=== PATIENT | female | born 1960 | race Caucasian/White ===

== ENCOUNTER 2016-08-22 13:37 | Emergency (ER) | payer BC ==
--- NOTE | 2016-08-22 14:38 | ER NURSING DOCUMENTATION ---
Nurse's Notes [facility] ([place], [place]) Name:Vanna Bowles Age:56 yrs Sex:Female :1960 Arrival Date:08/22/2016 Time:13:37 Bed1 Private MD: Diagnosis:Acute Neck Pain Presentation: 08/22 13:53 Presenting complaint: Patient states: lifted something very heavy on 08/19 and been sj having pain in right clavicular area ever since, unrelieved by massage, chiropractic manipulation, and tylenol. Transition of care: Home. 13:53 Acuity: KAMINI 3 sj 13:53 Method Of Arrival: Private Vehicle sj Triage Assessment: 13:56 General: Appears comfortable, Behavior is cooperative, pleasant. Pain: Complains of sj pain in right clavicle Pain radiates to right scapular area Pain currently is 5 out of 10 on a pain scale. Neuro: Level of Consciousness is awake, alert, Oriented to person, place, time, event. Cardiovascular: Capillary refill < 3 seconds. Respiratory: Respiratory effort is even, unlabored, Respiratory pattern is regular, symmetrical. Historical: - Allergies: Codeine; Demerol; - Home Meds: 1. Acetaminophen Oral - PMHx: vertigo; ASTHMA; hard of hearing; - PSHx: Cholecysectomy; laser to inner ear; bilateral knees; HYSTERECTOMY; clavicle repair 04/29; - Tetanus: < 10 years. - Ebola Screening: : Patient negative for fever greater than or equal to 101.5 degrees Fahrenheit, and additional compatible Ebola Virus Disease symptoms. Patient denies exposure to infectious person. Patient denies travel to an Ebola-affected area in the 21 days before illness onset. No symptoms or risks identified at this time. . - Immunization history: Pneumococcal vaccine is up to date, Flu Vaccine None. - Social history: Smoking status: Patient states was never smoker of tobacco. Patient uses alcohol only on a social basis. Patient/guardian denies using marijuana. Screenin:00 Infectious Disease Risk None. Abuse screen: Denies threats or abuse. Denies injuries sj from another. 14:00 Nutritional screening: No deficits noted. sj Assessment: 13:58 See Triage Assessment done by same RN. sj Vital Signs: 13:43 BP 121 / 66; Pulse 77; Resp 16; Temp 98.2(O); Pulse Ox 91% on R/A; Weight 70.76 kg (R); arc Height 5 ft. 7 in. (170.18 cm) (R); Pain 4/10; 13:43 Body Mass Index 24.43 (70.76 kg, 170.18 cm) arc ED Course: 13:38 Patient arrived in ED. em3 13:48 Rayray Cazares MD is Attending Physician. be 13:53 Isabel Sanford is Primary Nurse. sj 13:53 Ice pack to injury. arc 13:54 Triage completed. sj 13:58 Notified ED Physician of patient's arrival and chief complaint. Dr. Cazares. sj 14:00 Faheem Marie MD, Manuel Grimes DO is Referral Physician. be 14:00 Patient moved to radiology. pm1 14:01 Valuables Given to family. Patient has correct armband on for positive identification. sj Placed in gown. Bed in low position. Call light in reach. Side rails up X 1. 14:19 Patient moved back from radiology. pm1 14:36 Ice pack applied. sj Administered Medications: No medications were administered Outcome: 14:01 Discharge ordered by . be 14:36 Discharged to home ambulatory, with family. sj 14:36 Condition: stable 14:36 Instructed on discharge instructions, follow up and referral plans. medication usage, Demonstrated understanding of instructions, medications, Prescriptions given X 2. 14:37 Patient left the ED. 07 11:06 Discharge F/U Call: Unable to reach: non-working number Signatures: Rayray Cazares MD MD be Greg Gordon pm1 Denis Tyson em3 Delmy, Terra, Reg Reg arc Hofsess, Jessica Isabel Sanford
--- NOTE | 2016-08-22 14:39 | ER PHYSICIAN DOCUMENTATION ---
Physician Documentation [facility] Name:Vanna Bowles Age:56 yrs Sex:Female :1960 Arrival Date:08/22/2016 Time:13:37 Bed1 Private MD: Rayray Chang Disposition: 08/22/16 14:01 Discharged to Home/Self Care. Impression: Acute Neck Pain. - Condition is Good. - Discharge Instructions: NECK PAIN, No Trauma. - Prescriptions for naproxen 500 mg Oral tablet - take 1 tablet by ORAL route every 12 hours; 60 tablet. Tramadol 50 mg Oral - take 1 tablet by ORAL route every 8 hours as needed; 15 tablet. - Medical Reconciliation form form. - Follow up: Faehem Marie MD, Manuel Grimes DO; When: 1 - 2 days; Reason: Recheck today's complaints. - Problem is new. - Symptoms are unchanged. HPI: 08/22 16:43 This 56 yrs old Female presents to ER via Private Vehicle with complaints of be Shoulder Pain. 16:43 The patient or guardian complains of pain, that is acute. right trapezius and right be clavical. Context: Known DDD, got off weekly commuter flight with severe right sided neck pain. Historical: - Allergies: Codeine; Demerol; - Home Meds: 1. Acetaminophen Oral - PMHx: vertigo; ASTHMA; hard of hearing; - PSHx: Cholecysectomy; laser to inner ear; bilateral knees; HYSTERECTOMY; clavicle repair 04/29; - Tetanus: < 10 years. - Ebola Screening: : Patient negative for fever greater than or equal to 101.5 degrees Fahrenheit, and additional compatible Ebola Virus Disease symptoms. Patient denies exposure to infectious person. Patient denies travel to an Ebola-affected area in the 21 days before illness onset. No symptoms or risks identified at this time. . - Immunization history: Pneumococcal vaccine is up to date, Flu Vaccine None. - Social history: Smoking status: Patient states was never smoker of tobacco. Patient uses alcohol only on a social basis. Patient/guardian denies using marijuana. ROS: 16:43 MS/extremity: Positive for pain, of the right clavicle, Negative for injury or acute be deformity, decreased range of motion, paresthesias, tingling. 16:43 All other systems are negative. Exam: 16:43 Constitutional: This is a well developed, well nourished patient who is awake, alert, be and in no acute distress. Head/Face: Normocephalic, atraumatic. Eyes: Pupils equal round and reactive to light, extra-ocular motions intact. Lids and lashes normal. Conjunctiva and sclera are non-icteric and not injected. Cornea within normal limits. Periorbital areas with no swelling, redness, or edema. ENT: Nares patent. No nasal discharge, no septal abnormalities noted. Tympanic membranes are normal and external auditory canals are clear. Oropharynx with no redness, swelling, or masses, exudates, or evidence of obstruction, uvula midline. Mucous membranes moist. 16:43 Neck: Trachea midline, no thyromegaly or masses palpated, and no cervical be lymphadenopathy. Supple, full range of motion without nuchal rigidity, or vertebral point tenderness. No Meningismus. 16:43 Musculoskeletal/extremity: Circulation is intact in all extremities. Sensation intact. 16:43 Skin: Turgor: is excellent. Vital Signs: 13:43 BP 121 / 66; Pulse 77; Resp 16; Temp 98.2(O); Pulse Ox 91% on R/A; Weight 70.76 kg (R); arc Height 5 ft. 7 in. (170.18 cm) (R); Pain 4/10; 13:43 Body Mass Index 24.43 (70.76 kg, 170.18 cm) arc MDM: 13:48 Patient medically screened. be 16:43 Differential diagnosis: DJD. be 16:49 Data reviewed: vital signs, nurses notes, radiologic studies, plain films, and as a be result, I will discharge patient, give prescription of naproxen and tramadol. Dispensed Medications: No medications were administered Signatures: Rayray Cazares MD MD be Janzen, Sarah sj
--- NOTE | 2016-08-26 14:09 | RADIOLOGY REPORT ---
Two views of the chest demonstrate the heart, vessels and lungs to be unremarkable. No infiltrate, fluid or pneumothorax is seen. IMPRESSION: Unremarkable two views of the chest. No displaced injury is identified. If clinically indicated, further evaluation and/or follow-up may be of benefit. MTDD
--- NOTE | 2016-08-26 14:10 | RADIOLOGY REPORT ---
Four views of the cervical spine demonstrate no displaced fracture or subluxation. Diffuse degenerative disk disease is seen throughout the cervical spine as evidenced by disk space narrowing and osteophyte formation. Changes are most severe at C3-4. Adjacent soft tissues appear unremarkable. IMPRESSION: Diffuse severe degenerative disk disease. No displaced injury is identified. If clinically indicated, further evaluation and/or follow-up may be of benefit. ELIZABETH
--- NOTE | 2016-08-26 14:11 | RADIOLOGY REPORT ---
Two views of the right clavicle demonstrate no displaced fracture or other abnormality. IMPRESSION: No displaced injury is identified. If clinically indicated, further evaluation and/or follow-up may be of benefit. ELIZABETH
== END 2016-08-22 14:38 | disposition home or self-care (01) ==
LOC: ER 13:37
DX: M54.2 Cervicalgia (principal)
CPT/HCPCS: 71020; 72050; 99283